=== PATIENT | female | born 1935 | race Hispanic/Latino ===

== ENCOUNTER 2020-09-20 13:59 | Observation (INO) | payer MEDICARE ==
--- NOTE | 2020-09-20 14:44 | RAD REPORT ---
EXAM DESCRIPTION: CT - Ct Stroke Brain Wo Cont - 09/20/2020 2:30 pm CLINICAL HISTORY: NUMBNESS, CVA, stroke protocol study COMPARISON: Head Brain Wo Cont dated 04/30/2017 TECHNIQUE: Axial 5 millimeter thick images of the head were obtained without IV contrast. All CT scans are performed using dose optimization technique as appropriate and may include automated exposure control or mA/KV adjustment according to patient size. FINDINGS: No intracranial hemorrhage, mass, or cerebral edema. No acute infarction identifiable. No extra-axial fluid collections. Valladares matter-white matter differentiation is preserved.Atrophy and chr onic ischemic changes are present mild in degree similar to the 2017 study. Ventricles are in proport ion to volume loss. Visualized portions of the mastoid air cells, paranasal sinuses, and orbits are unremarkable. Findings telephoned to Dr. Howard 14:40 p.m. IMPRESSION: No CT evidence of acute intracranial process. Atrophy and chronic ischemic changes match 2017. Chronic ischemic changes can mask nonhemorrhagic acute infarction. MR brain followup can be obtained if there is ongoing concern for acute ischemia.
[2020-09-20] MEDS ORDERED: ALTEPLASE 0 ML IV ONE (15:05)
[2020-09-20] MEDS ORDERED: NA CHLORIDE 0.9% 0 ML ONE (15:05)
[2020-09-20 15:16] LABS: Protime INR 1.04
[2020-09-20] MEDS ORDERED: LORAZEPAM 1 MG TABLET ONE (15:18)
[2020-09-20 15:27] LABS: Absolute Lymphocytes (CBC) 1.3 K/uL (0.7-4.9); Basophils % 0.4 % (0-1.3); Hematocrit 37.4 % (36.0-45.0); Lymphocytes % 23.6 % (15.3-44.8); MPV 7.4 fL (7.6-11.3); RBC Red Blood Cell Count 4.38 M/uL (3.86-4.86)
[2020-09-20 15:31] LABS: ALT/SGPT 32 U/L (12-78); AST/SGOT 27 U/L (15-37); Albumin 4.1 g/dL (3.4-5.0); Alkaline Phosphatase 77 U/L (45-117); BUN Blood Urea Nitrogen 22 mg/dL (7-18); Bicarbonate 25 mmol/L (21-32); Bilirubin Direct 0.2 mg/dL (0-0.2); Bilirubin Total 0.6 mg/dL (0.2-1.0); Glucose Level 88 mg/dL (74-106); Magnesium 1.9 mg/dL (1.8-2.4); NT PRO-BNP 113 pg/mL (<450); Potassium 4.3 mmol/L (3.5-5.1); Protein, Total 8.1 g/dL (6.4-8.2); Sodium Level 122 mmol/L (136-145); Troponin (Emerg Dept Use Only) < 0.02 ng/mL (0.0-0.045)
--- NOTE | 2020-09-20 16:23 | RAD REPORT ---
EXAM DESCRIPTION: MRI - MRA Head Wo Cont - 09/20/2020 4:08 pm CLINICAL HISTORY: CVA, stroke-like symptoms, weakness COMPARISON: CT head same date, MRI brain same date TECHNIQUE: Axial and coronal 3D [id number] image acquisition was performed. 3D rotational images were generated with source and reconstruction images reviewed. Horizontal and vertical axis rotation al views generated using MIP protocol. FINDINGS: No aneurysm or vascular malformation. No dissection changes are seen. Exam does have motio n degradation limitation. No vasculitis or named branch occlusion identified. Moderate severity ather osclerotic changes are present in the peripheral M2/M3 branches of each middle cerebral artery and at the P1-P2 junction of each posterior cerebral artery. The atherosclerotic changes exceed the severit y of chronic ischemic change in the white matter. No basilar artery or internal carotid artery signif icant disease. No significant anterior cerebral artery disease. The anterior cerebral arteries are mo st degraded by motion. IMPRESSION: Moderate severity atherosclerotic changes are present in the peripheral middle cerebral artery distributions as well as the proximal posterior cerebral arteries. No large named branch occlusion. No vasculitis, aneurysm or vascular malformation.
--- NOTE | 2020-09-20 16:25 | RAD REPORT ---
EXAM DESCRIPTION: MRI - MRA Neck W/Wo Cont - 09/20/2020 4:05 pm CLINICAL HISTORY: CVA, weakness, dizziness COMPARISON: MRI brain same date, MRA head same date TECHNIQUE: MR angiography of the cervical vasculature performed. Coronal imaging plane acquisition u tilized. A 12 MultiHance contrast volume was utilized. Coronal reformatted images were generated and reviewed. Vertical axis 3D rotational projections obtained using maximum intensity projection protoco l. FINDINGS: Aortic arch is 3 vessel configuration. The subclavian artery origin falls outside of the f ield of view. The innominate and left common carotid origins show no stenosis. No vertebral artery or igins stenosis. Codominant vertebral arteries are unremarkable. There is mild tortuosity of the proxi mal bilateral common carotid arteries. No significant right carotid bulb or right ICA disease. Focal band like stenosis is present at the origin of the right carotid bulb causing 50-60% stenosis. 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
[2020-09-20] MEDS ORDERED: ASPIRIN 81 MG CHEWABLE TABLET ONE (16:30)
--- NOTE | 2020-09-20 16:47 | RAD REPORT ---
EXAM DESCRIPTION: MRI - Brain W/Wo Cont - 09/20/2020 4:27 pm CLINICAL HISTORY: STROKE COMPARISON: MRA Head Wo Cont dated 09/20/2020 TECHNIQUE: Sagittal and axial T1-weighted images were obtained. Axial PD/heavily T2-weighted and T2- FLAIR images were obtained along with axial DWI/ADC mapping sequences. Coronal heavily T2 weighted s equence obtained. Axial and coronal post-contrast T1-weighted images were also obtained. A 12 ml Mul tihance contrast following utilized. FINDINGS: No intracranial hemorrhage, mass or acute infarction. There is no edema or shift of midli ne structures. No extra-axial fluid collections. Valladares-matter/white matter junction is preserved. Sig nal voids are seen as a normal finding in the major intracranial vessels. Patient has very minimal at rophy change. Ventricles are normal. Cerebral white matter and basal ganglia chronic ischemic changes are mild. No significant brainstem chronic ischemic change. Post-contrast images show normal enhancement. No dural thickening. Mastoid air cells and paranasal sinuses are clear. IMPRESSION: No acute infarction. Atrophy and chronic ischemic changes are mild.
--- NOTE | 2020-09-20 16:51 | EDPHYS ---
Physician Documentation [facility] Name: Natali Perez Age: 84 yrs Sex: Female : 1935 Arrival Date: 09/20/2020 Time: 14:02 Bed 4 Private MD: Armaan Pereyra ED Physician Cornell Howard HPI: 09/20 14:45 This 84 yrs old Female presents to ER via Wheelchair with complaints of High cp Blood Pressure, Numbness Of Face. 14:45 The patient's problem is reported as a facial droop, on left. Onset: The cp symptoms/episode began/occurred today. 14:45 Duration: This was a single incident. Associated signs and symptoms: Pertinent cp positives: tingling left side of face. Patient's baseline: Neuro: alert and fully oriented, Motor: no deficits, Ambulation: walks without assistance, Speech: normal. 14:45 Patient reports she was told to go to ED for evaluation of low sodium level after cp having blood drawn 2 days ago. Historical: - Allergies: 14:19 Iodine; iw 14:19 Sulfa (Sulfonamide Antibiotics); iw - PMHx: 14:19 Hyperlipidemia; Hypertension; Hypothyroidism; iw - Immunization history:: Adult Immunizations unknown. - Social history:: Smoking status: unknown. ROS: 14:50 Constitutional: Negative for body aches, chills, fever, poor PO intake. cp 14:50 Eyes: Negative for injury, pain, redness, and discharge. cp 14:50 ENT: Negative for ear pain, sore throat, difficulty swallowing, difficulty handling secretions. 14:50 Cardiovascular: Negative for chest pain, edema, palpitations. 14:50 Respiratory: Negative for cough, shortness of breath, wheezing. 14:50 Abdomen/GI: Negative for abdominal pain, nausea, vomiting, and diarrhea, constipation. 14:50 : Negative for urinary symptoms. 14:50 Neuro: Positive for tingling, weakness, Negative for altered mental status, dizziness, headache. 14:50 All other systems are negative. Exam: 14:55 Constitutional: The patient appears in no acute distress, alert, awake, cp non-diaphoretic, non-toxic, well developed, well nourished. 14:55 Head/Face: Normocephalic, atraumatic. cp 14:55 Eyes: Periorbital structures: appear normal, Pupils: equal, round, and reactive to light and accomodation, Extraocular movements: intact throughout, Conjunctiva: normal, no exudate, no injection, Sclera: no appreciated abnormality, Lids and lashes: appear normal, bilaterally. 14:55 ENT: External ear(s): are unremarkable, Nose: is normal, Mouth: Lips: moist, Oral mucosa: moist, Posterior pharynx: Airway: no evidence of obstruction, patent. 14:55 Neck: ROM/movement: is normal, is supple, without pain, no range of motions limitations, no nuchal rigidity. 14:55 Chest/axilla: Inspection: normal, Palpation: is normal, no crepitus, no tenderness. 14:55 Cardiovascular: Rate: normal, Rhythm: regular, Edema: is not appreciated, JVD: is not appreciated. 14:55 Respiratory: the patient does not display signs of respiratory distress, Respirations: normal, no use of accessory muscles, no retractions, labored breathing, is not present, Breath sounds: are clear throughout, no decreased breath sounds, no stridor, no wheezing. 14:55 Abdomen/GI: Inspection: abdomen appears normal, Palpation: abdomen is soft and non-tender, in all quadrants. 14:55 Back: pain, is absent, ROM is normal. 14:55 Skin: no rash present. 14:55 Neuro: Orientation: to person, place \\T\\ time. Mentation: is normal, Cerebellar function: Romberg testing is negative, normal finger to nose testing, heel to carroll testing is normal, Motor: moves all fours, strength is normal, Sensation: light touch is decreased in the left side of face. 15:05 Radiologist reports: no acute findings cp Vital Signs: 14:12 BP 157 / 91; Pulse 79; Resp 16; Temp 97.0; Pulse Ox 100% on R/A; iw 14:46 Weight 63.91 kg (M); iw 15:00 BP 183 / 76; Pulse 82; Resp 15; Pulse Ox 100% ; jl7 16:35 BP 156 / 75; Pulse 72; Resp 15; Pulse Ox 100% ; jl7 17:00 BP 164 / 80; Pulse 67; Resp 15; Pulse Ox 100% ; jl7 18:32 BP 172 / 76; Pulse 64; Resp 17; Pulse Ox 100% ; jl7 19:15 BP 200 / 85; Pulse 71; Resp 20; Pulse Ox 99% ; rr5 19:32 BP 198 / 89; Pulse 107; Resp 25; Pulse Ox 100% on R/A; rv 20:29 BP 138 / 66; Pulse 89; Resp 20; Pulse Ox 99% ; rr5 21:27 BP 141 / 66; Pulse 86; Resp 17; Pulse Ox 98% ; rr5 NIH Stroke Scale Scores: 14:35 NIHSS Score: 1 jl7 14:43 NIHSS Score: 2 cp MDM: 14:43 Patient medically screened. cp 14:57 ED course: VS noted. Discussed results of exam with consult with ED physician, DR katja Howard. Patient refuses tpa at this time. 15:00 Differential diagnosis: CVA, TIA, metabolic disorder, drug effects, Steel's Palsy. cp 16:35 Physician consultation: Rafy Harley MD was contacted at 16:35, regarding consult, cp patient's condition, would like admission per . Mike Davis discussed negative head CT and head/neck MRI. Continue medical management with replacement of sodium level. 16:46 Data reviewed: vital signs, nurses notes, lab test result(s), EKG, radiologic studies, cp CT scan, MRI, plain films. Physician consultation: Mike Davis was contacted at 16:47, regarding admission, to the telemetry unit. patient's condition, and will see patient in ED, shortly. 09/20 14:43 Order name: Basic Metabolic Panel; Complete Time: 15:41 cp 09/20 15:42 Interpretation: Normal except: NA 122; CL 89; BUN 22; GFR 82. cp 09/20 14:43 Order name: CBC with Diff; Complete Time: 15:41 cp 09/20 15:42 Interpretation: Normal except: MPV 7.4. cp 09/20 14:43 Order name: LFT's; Complete Time: 15:41 cp 09/20 15:42 Interpretation: Normal except: GLOB 4.0; A/G 1.0. cp 09/20 14:43 Order name: Magnesium; Complete Time: 15:41 cp 09/20 14:43 Order name: NT PRO-BNP; Complete Time: 15:41 cp 09/20 14:43 Order name: PT-INR; Complete Time: 15:41 cp 09/20 14:23 Order name: CT Stroke Brain w/o Contrast; Complete Time: 15:41 iw 09/20 15:42 Interpretation: Report reviewed. 09/20 14:43 Order name: Troponin (emerg Dept Use Only); Complete Time: 15:41 cp 09/20 14:56 Order name: Glucose, Ancillary Testing; Complete Time: 15:41 EDMS 09/20 17:48 Order name: COVID-19 : Document "Date of Symptom Onset" if Symptomatic. em1 09/20 17:48 Order name: CORONAVIRUS EDOH 09/20 19:16 Order name: SARS-COV-2 RT PCR EDOH 09/20 20:52 Order name: Basic Metabolic Panel EDOH 09/20 21:06 Order name: Osmolality, Serum EDOH 09/20 14:43 Order name: XRAY Chest (1 view); Complete Time: 17:15 cp 09/20 14:43 Order name: EKG; Complete Time: 14:43 cp 09/20 14:43 Order name: Cardiac monitoring; Complete Time: 14:59 cp 09/20 14:43 Order name: EKG - Nurse/Tech; Complete Time: 14:59 cp 09/20 14:43 Order name: IV Saline Lock; Complete Time: 14:59 cp 09/20 14:43 Order name: Labs collected and sent; Complete Time: 14:59 cp 09/20 14:43 Order name: O2 Per Protocol; Complete Time: 14:59 cp 09/20 14:43 Order name: O2 Sat Monitoring; Complete Time: 14:59 cp 09/20 15:19 Order name: MRA Head Wo Cont; Complete Time: 16:30 EDMS 09/20 15:32 Order name: Brain W/Wo Cont; Complete Time: 17:15 EDMS 09/20 17:16 Interpretation: Report reviewed. 09/20 15:32 Order name: MRA Neck W/Wo Cont; Complete Time: 16:30 EDMS Administered Medications: 16:12 Drug: foLIC Acid 1 mg Route: IVPB; Site: right forearm; jl7 16:13 Follow up: Response: No adverse reaction; IV Status: Completed infusion jl7 16:20 Drug: Aspirin Chewable Tablet 162 mg Route: PO; jl7 16:39 Follow up: Response: No adverse reaction jl7 16:34 Not Given (Physician Discretion): Aspirin Chewable Tablet 324 mg PO once; 81 mg tablets jl7 x 4 16:38 Drug: NS 0.9% 500 ml Route: IV; Rate: 500 ml/hr; Site: right forearm; 7 17:38 Follow up: Response: No adverse reaction; IV Status: Completed infusion; IV Intake: jl7 500ml Disposition: 09/21 06:49 Co-signature as Attending Physician, Cornell Howard MD I agree with the assessment and kdr plan of care. Disposition: 09/20/20 16:50 Hospitalization ordered by Mike Davis for Observation. Preliminary diagnosis are Transient cerebral ischemic attack, unspecified, Hypo-osmolality and hyponatremia. - Bed requested for Telemetry/MedSurg (observation). - Status is Observation. rr5 - Condition is Stable. - Problem is new. - Symptoms have improved. NIH Stroke Scale - NIH Stroke Score Date: 09/20/2020 Time: 14:35 Total Score = 1 1a. Level of Consciousness (LOC) - 0(Alert) 1b. Level of Consciousness (LOC) (Year \\T\\ Age) - 0(Both) 1c. LOC Commands (Open \\T\\ Closes Eyes/Contract Engineer) - 0(Both) 2. Best Gaze (Lateral Gaze Paresis) - 0(Normal) 3. Visual Field Loss - 0(No visual loss) 4. Facial Palsy - 0(Normal) 5a. Left Arm: Motor (10-second hold) - 0(No drift) 5b. Right Arm: Motor (10-second hold) - 0(No drift) 6a. Left Leg: Motor (5-second hold - always test supine) - 0(No drift) 6b. Right Leg: Motor (5-second hold - always test supine) - 0(No drift) 7. Limb Ataxia (finger/nose \\T\\ heel/carroll - test with eyes open) - 0(Absent) 8. Sensory Loss (pinprick arms/legs/face) - 1(Mild to moderate loss) 9. Best Language: Aphasia (description/naming/reading) - 0(No aphasia) 10. Dysarthria (speech clarity - read or repeat words) - 0(Normal) 11. Extinction and Inattention (visual/tactile/auditory/spatial/personal) - 0(No abnormality) Initials: jl7 NIH Stroke Scale - NIH Stroke Score Date: 09/20/2020 Time: 14:43 Total Score = 2 1a. Level of Consciousness (LOC) - 0(Alert) 1b. Level of Consciousness (LOC) (Year \\T\\ Age) - 0(Both) 1c. LOC Commands (Open \\T\\ Closes Eyes/Contract Engineer) - 0(Both) 2. Best Gaze (Lateral Gaze Paresis) - 0(Normal) 3. Visual Field Loss - 0(No visual loss) 4. Facial Palsy - 1(Minor Paralysis) 5a. Left Arm: Motor (10-second hold) - 0(No drift) 5b. Right Arm: Motor (10-second hold) - 0(No drift) 6a. Left Leg: Motor (5-second hold - always test supine) - 0(No drift) 6b. Right Leg: Motor (5-second hold - always test supine) - 0(No drift) 7. Limb Ataxia (finger/nose \\T\\ heel/carroll - test with eyes open) - 0(Absent) 8. Sensory Loss (pinprick arms/legs/face) - 1(Mild to moderate loss) 9. Best Language: Aphasia (description/naming/reading) - 0(No aphasia) 10. Dysarthria (speech clarity - read or repeat words) - 0(Normal) 11. Extinction and Inattention (visual/tactile/auditory/spatial/personal) - 0(No abnormality) Initials: cp Signatures: Dispatcher [employer] [facility] Elidia Pineda RN RN dw Cornell Howard MD MD kdr Williams, Irene, RN RN iw Mc Stone PA PA cp Rosa Sellers, RN RN jl7 Deyvi Reno, RN RN rr5 Corrections: (The following items were deleted from the chart) 09/20 15:18 15:00 MR STROKE PROTOCOL+MRI.RAD.BRZ ordered. [facility] 21:10 16:50 Hospitalization Ordered by Mike Davis for Observation. Preliminary dw diagnosis is Transient cerebral ischemic attack, unspecified; Hypo-osmolality and hyponatremia. Bed requested for Telemetry/MedSurg (observation). Status is Observation. Condition is Stable. Problem is new. Symptoms have improved. cp 21:41 21:10 09/20/2020 16:50 Hospitalization Ordered by Mike Davis for rr5 Observation. Preliminary diagnosis is Transient cerebral ischemic attack, unspecified; Hypo-osmolality and hyponatremia. Bed requested for Telemetry/MedSurg (observation). Status is Observation. Condition is Stable. Problem is new. Symptoms have improved. dw
--- NOTE | 2020-09-20 16:51 | ER ---
Nurse's Notes [facility] Name: Natali Perez Age: 84 yrs Sex: Female : 1935 Arrival Date: 09/20/2020 Time: 14:02 Bed 4 Private MD: Armaan Pereyra Diagnosis: Transient cerebral ischemic attack, unspecified;Hypo-osmolality and hyponatremia Presentation: 09/20 14:12 Chief complaint: Patient states: her BP was high at 1 this after noon, has been iw fluctuating high and low over past 2 weeks, was taking half dose of her BP medicine, trying to regulate her BP meds. Sometimes she gets shaky and gets chills was told her sodium was 124 from labs two days ago, sees PA at [facility] office , has been having left sided facial numbness and it feels funny , had a hard time swallowing, started about an hour ago. Coronavirus screen: At this time, the client does not indicate any symptoms associated with coronavirus-19. Ebola Screen: Patient negative for fever greater than or equal to 101.5 degrees Fahrenheit, and additional compatible Ebola Virus Disease symptoms Patient denies exposure to infectious person. Patient denies travel to an Ebola-affected area in the 21 days before illness onset. No symptoms or risks identified at this time. Initial Sepsis Screen: Does the patient meet any 2 criteria? No. Patient's initial sepsis screen is negative. Does the patient have a suspected source of infection? No. Patient's initial sepsis screen is negative. Risk Assessment: Do you want to hurt yourself or someone else? Patient reports no desire to harm self or others. Onset of symptoms was September 20, 2020. 14:12 Method Of Arrival: Wheelchair iw 14:12 Acuity: ESPERANZA 2 iw Historical: - Allergies: 14:19 Iodine; iw 14:19 Sulfa (Sulfonamide Antibiotics); iw - PMHx: 14:19 Hyperlipidemia; Hypertension; Hypothyroidism; iw - Immunization history:: Adult Immunizations unknown. - Social history:: Smoking status: unknown. Screenin:55 Patient has been NPO before screening. The patient is alert, able to follow commands. jl7 The patient does not exhibit slurred or garbled speech The patient is not exhibiting difficulty speaking. The patient does not exhibit difficulty understanding words. The patient is able to swallow own secretions with no drooling or need for suction. Patient tolerated one teaspoon of water. No drooling, immediate coughing, gurgling, or clearing of the throat was noted. The patient tolerated 90mL of water. No drooling, immediate coughing, gurgling, or clearing of the throat was noted. The patient passed the bedside swallow screening. Oral medications may be given as ordered. Contact Physician for further diet orders. Provider notified of bedside swallow screening results: Mc MARTINEZ. 15:00 Fall Risk IV access (20 points). Total Lovett Fall Scale indicates No Risk (0-24 pts). jl7 15:07 Abuse screen: Denies threats or abuse. Denies injuries from another. Nutritional jl7 screening: No deficits noted. Tuberculosis screening: No symptoms or risk factors identified. Assessment: 14:35 General: Appears in no apparent distress. uncomfortable, Behavior is calm, cooperative, jl7 appropriate for age. Pain: Denies pain. Neuro: Level of Consciousness is awake, alert, obeys commands, Oriented to person, place, time, situation. Cardiovascular: Denies chest pain, Patient's skin is warm and dry. Respiratory: Airway is patent Respiratory effort is even, unlabored, Respiratory pattern is regular, symmetrical, Denies shortness of breath. GI: Abdomen is non-distended, Patient currently denies diarrhea, nausea, vomiting. Derm: Skin is pink, warm \T\ dry. 14:55 Reassessment: Dr. Howard and JUAN Hoang at bedside, pt verbally refuses TPA at jl7 this time. 16:10 Reassessment: Pt returned from MRI. jl7 19:30 General: Appears in no apparent distress. comfortable, Behavior is calm, cooperative, rr5 appropriate for age. Pain: Denies pain. Neuro: Level of Consciousness is awake, alert, obeys commands, Oriented to person, place, time, situation. Cardiovascular: Capillary refill < 3 seconds Patient's skin is warm and dry. Respiratory: Airway is patent Respiratory effort is even, unlabored, Respiratory pattern is regular, symmetrical. GI: Abdomen is non-distended. : No signs and/or symptoms were reported regarding the genitourinary system. EENT: No signs and/or symptoms were reported regarding the EENT system. Derm: Skin is pink, warm \T\ dry. Musculoskeletal: Capillary refill < 3 seconds. 19:40 Reassessment: Patient appears in no apparent distress at this time. Patient is alert, rr5 oriented x 3, equal unlabored respirations, skin warm/dry/pink. hydralazine given ordered in [facility]. 20:30 Reassessment: Patient appears in no apparent distress at this time. Patient is alert, rr5 oriented x 3, equal unlabored respirations, skin warm/dry/pink. Patient states symptoms have improved. 21:27 Reassessment: Patient appears in no apparent distress at this time. Patient is alert, rr5 oriented x 3, equal unlabored respirations, skin warm/dry/pink. Vital Signs: 14:12 BP 157 / 91; Pulse 79; Resp 16; Temp 97.0; Pulse Ox 100% on R/A; iw 14:46 Weight 63.91 kg (M); iw 15:00 BP 183 / 76; Pulse 82; Resp 15; Pulse Ox 100% ; jl7 16:35 BP 156 / 75; Pulse 72; Resp 15; Pulse Ox 100% ; jl7 17:00 BP 164 / 80; Pulse 67; Resp 15; Pulse Ox 100% ; jl7 18:32 BP 172 / 76; Pulse 64; Resp 17; Pulse Ox 100% ; jl7 19:15 BP 200 / 85; Pulse 71; Resp 20; Pulse Ox 99% ; rr5 19:32 BP 198 / 89; Pulse 107; Resp 25; Pulse Ox 100% on R/A; rv 20:29 BP 138 / 66; Pulse 89; Resp 20; Pulse Ox 99% ; rr5 21:27 BP 141 / 66; Pulse 86; Resp 17; Pulse Ox 98% ; rr5 NIH Stroke Scale Scores: 14:35 NIHSS Score: 1 jl7 14:43 NIHSS Score: 2 cp ED Course: 14:02 Patient arrived in ED. ag5 14:02 Armaan Pereyra MD is Private Physician. ag5 14:18 Triage completed. iw 14:22 Arm band placed on. iw 14:27 Rosa Sellers RN is Primary Nurse. jl7 14:29 CT Stroke Brain w/o Contrast In Process Unspecified. EDMS 14:35 Patient has correct armband on for positive identification. Placed in gown. Bed in low jl7 position. Call light in reach. Side rails up X2. greaser helper on. Pulse ox on. NIBP on. Warm blanket given. 14:41 Mc Stone PA is PHCP. cp 14:41 Cornell Howard MD is Attending Physician. cp 14:45 Initial lab(s) drawn, by me, sent to lab. EKG done, by ED staff, reviewed by Mc MARTINEZ. Inserted saline lock: 20 gauge in right forearm, using aseptic technique. Blood collected. 15:50 MRA Head Wo Cont In Process Unspecified. EDMS 15:51 Brain W/Wo Cont In Process Unspecified. EDMS 15:51 MRA Neck W/Wo Cont In Process Unspecified. EDMS 16:17 XRAY Chest (1 view) In Process Unspecified. EDMS 16:49 Mike Davis is Hospitalizing Provider. cp 21:26 No provider procedures requiring assistance completed. Patient admitted, IV remains in rr5 place. intact, No redness/swelling at site. Administered Medications: 16:12 Drug: foLIC Acid 1 mg Route: IVPB; Site: right forearm; jl7 16:13 Follow up: Response: No adverse reaction; IV Status: Completed infusion jl7 16:20 Drug: Aspirin Chewable Tablet 162 mg Route: PO; jl7 16:39 Follow up: Response: No adverse reaction jl7 16:34 Not Given (Physician Discretion): Aspirin Chewable Tablet 324 mg PO once; 81 mg tablets jl7 x 4 16:38 Drug: NS 0.9% 500 ml Route: IV; Rate: 500 ml/hr; Site: right forearm; jl7 17:38 Follow up: Response: No adverse reaction; IV Status: Completed infusion; IV Intake: jl7 500ml Intake: 17:38 IV: 500ml; Total: 500ml. jl7 Outcome: 16:50 Decision to Hospitalize by Provider. cp 21:26 Admitted to Med/surg accompanied by tech, via stretcher, room 219, with chart, Report rr5 called to bari 21:26 Condition: stable 21:26 Instructed on the need for admit. 21:41 Patient left the ED. rr5 NIH Stroke Scale - NIH Stroke Score Date: 09/20/2020 Time: 14:35 Total Score = 1 1a. Level of Consciousness (LOC) - 0(Alert) 1b. Level of Consciousness (LOC) (Year \T\ Age) - 0(Both) 1c. LOC Commands (Open \T\ Closes Eyes/Corporate Giving Manager) - 0(Both) 2. Best Gaze (Lateral Gaze Paresis) - 0(Normal) 3. Visual Field Loss - 0(No visual loss) 4. Facial Palsy - 0(Normal) 5a. Left Arm: Motor (10-second hold) - 0(No drift) 5b. Right Arm: Motor (10-second hold) - 0(No drift) 6a. Left Leg: Motor (5-second hold - always test supine) - 0(No drift) 6b. Right Leg: Motor (5-second hold - always test supine) - 0(No drift) 7. Limb Ataxia (finger/nose \T\ heel/carroll - test with eyes open) - 0(Absent) 8. Sensory Loss (pinprick arms/legs/face) - 1(Mild to moderate loss) 9. Best Language: Aphasia (description/naming/reading) - 0(No aphasia) 10. Dysarthria (speech clarity - read or repeat words) - 0(Normal) 11. Extinction and Inattention (visual/tactile/auditory/spatial/personal) - 0(No abnormality) Initials: jl7 NIH Stroke Scale - NIH Stroke Score Date: 09/20/2020 Time: 14:43 Total Score = 2 1a. Level of Consciousness (LOC) - 0(Alert) 1b. Level of Consciousness (LOC) (Year \T\ Age) - 0(Both) 1c. LOC Commands (Open \T\ Closes Eyes/Corporate Giving Manager) - 0(Both) 2. Best Gaze (Lateral Gaze Paresis) - 0(Normal) 3. Visual Field Loss - 0(No visual loss) 4. Facial Palsy - 1(Minor Paralysis) 5a. Left Arm: Motor (10-second hold) - 0(No drift) 5b. Right Arm: Motor (10-second hold) - 0(No drift) 6a. Left Leg: Motor (5-second hold - always test supine) - 0(No drift) 6b. Right Leg: Motor (5-second hold - always test supine) - 0(No drift) 7. Limb Ataxia (finger/nose \T\ heel/carroll - test with eyes open) - 0(Absent) 8. Sensory Loss (pinprick arms/legs/face) - 1(Mild to moderate loss) 9. Best Language: Aphasia (description/naming/reading) - 0(No aphasia) 10. Dysarthria (speech clarity - read or repeat words) - 0(Normal) 11. Extinction and Inattention (visual/tactile/auditory/spatial/personal) - 0(No abnormality) Initials: cp Signatures: Dispatcher [employer] Lindsay Gallego RN RN iw Mc Stone PA PA cp Rosa Sellers RN RN jl7 Jose Major RN RN rv Roque, Raymond RN RN rr5 Mark Anthony Newman ag5
[2020-09-20] MEDS ORDERED: NA CHLORIDE 0.9% 500 ML ONE (16:52)
--- NOTE | 2020-09-20 17:02 | RAD REPORT ---
EXAM DESCRIPTION: RAD - Chest Single View - 09/20/2020 4:17 pm CLINICAL HISTORY: weakness, hypertension COMPARISON: Portable September 2017 TECHNIQUE: AP portable chest image was obtained 09/20/2020 4:17 pm . FINDINGS: Lungs are underinflated accentuating the baseline interstitial pattern. This could mask an early interstitial edema or infiltrate. No focal mass or consolidation. Significant failure and volu me overload are not suspected. Heart and vasculature are normal. No measurable pleural effusion and no pneumothorax. No acute bony abnormality seen. No acute aortic findings suspected. IMPRESSION: Shallow inspiration exam accentuates baseline interstitial pattern. No focal mass or consolidation.
--- NOTE | 2020-09-20 18:04 | P.HP ---
Certification for Inpatient Patient admitted to: Observation With expected LOS: <2 Midnights Practitioner: I am a practitioner with admitting privileges, knowledge of patient current condition, hospital course, and medical plan of care. Services: Services provided to patient in accordance with Admission requirements found in Title 42 Section 412.3 of the Code of Federal Regulations Patient History Date of Service: 09/20/20 Reason for admission: Tingling sensation left face and body History of Present Illness: 84-year-old woman with a history of hypertension was brought to the emergency department due to sudden onset of tingling sensation on the left half of face and the rest of the body. Patient was noted to have severe systolic hypertension in the ED. Systolic blood pressure was up to 187. Her sodium level is 122. She saw Dr. Pereyra 2 days ago and was noted to have sodium level of 124. Her Irbesartan dose was also reduce by half due to fluctuating blood pressure. Stroke alert was called in the ED. CT head, MRI of the brain, MRA of head and neck were all performed in the ED and were unremarkable. No acute CVA. Patient is hospitalized for further management of hyponatremia and hypertension. Allergies IODINE; IODINE CONTAINING Allergy (Uncoded 12/29/13 20:21) Unknown Sulfa (Sulfonam Allergy (Uncoded 05/07/16 18:22) Unknown Sulfa (Sulfonami Allergy (Uncoded 09/30/17 19:05) Unknown Sulfa (Sulfonamid Allergy (Uncoded 04/30/17 15:43) Unknown SULFA (SULFONAMIDES) Allergy (Uncoded 12/29/13 20:21) Unknown Home Medications: Levothyroxine [Synthroid*] 112 mcg PO [id number] 12/29/13 Losartan Potassium [Cozaar*] 50 mg PO BEDTIME 12/29/13 Azithromycin Tab [Zithromax*] 250 mg PO DAILY #4 tab 12/30/13 Hydrocodone/Chlorphen Polis [Tussionex Oral Susp*] 5 ml PO Q12HP PRN #30 osyr 12/30/13 - Past Medical/Surgical History Diabetic: No -: HTN -: hypothyroidism -: arthritis -: cateracts bilater -: knee sx -: hysterectomy, -: clau -: shoulder sx - Family History Family History: Reviewed- Non-Contributory - Social History Smoking Status: Never smoker Alcohol use: No CD- Drugs: No Caffeine use: Yes Review of Systems Other: Except as documented, all other systems reviewed and negative. Physical Examination - Physical Exam General: Alert, In no apparent distress, Oriented x3 HEENT: PERRLA, Mucous membr. moist/pink, Other (Moist oral mucosae), EOMI, Abnormal EOM Neck: Supple, JVD not distended, No Thyromegaly Respiratory: Clear to auscultation bilaterally, Normal air movement Cardiovascular: No edema, Regular rate/rhythm, Normal S1 S2, No murmurs Gastrointestinal: Normal bowel sounds, Soft and benign, Non-distended, No tenderness Musculoskeletal: No swelling, No tenderness Integumentary: No rashes, No erythema Neurological: Normal speech, Normal strength at 5/5 x4 extr, Cranial nerves 3-12 intact - Studies Laboratory Data (last 24 hrs) 09/20/20 14:46: PT 12.0, INR 1.04 09/20/20 14:46: WBC 5.50, Hgb 12.7, Hct 37.4, Plt Count 266 09/20/20 14:46: Sodium 122 L, Potassium 4.3, BUN 22 H, Creatinine 0.68, Glucose 88, Magnesium 1.9, Total Bilirubin 0.6, AST 27, ALT 32, Alkaline Phosphatase 77 Assessment and Plan - Problems (Diagnosis) (1) Accelerated hypertension Current Visit: Yes Status: Acute (2) Hyponatremia Current Visit: No Status: Acute - Plan Place under observation. Start aspirin and folic acid Check lipid profile Treat hyponatremia with normal saline Monitor BMP q8hrs. Continue home antihypertensives. Hydralazine IV p.r.n. for BP spikes. Add amlodipine at bedtime. Check TSH Check serum osmolality - Advance Directives Does patient have a Living Will: No Does patient have a Durable POA for Healthcare: No
[2020-09-20] MEDS ORDERED: HYDRALAZINE HCL 20 MG/ML VIAL IV PRN (19:37)
[2020-09-20] MEDS ORDERED: ACETAMINOPHEN 500 MG TAB PO PRN (19:37)
[2020-09-20] MEDS ORDERED: ONDANSETRON 4 MG/2 ML VIAL IV PRN (19:37)
[2020-09-20] MEDS ORDERED: ASPIRIN EC 81 MG TAB PO ONE (19:37)
[2020-09-20] MEDS ORDERED: AMLODIPINE 5 MG TAB PO SCH (21:00)
[2020-09-20 22:58] VITALS: BMI 24.7
[2020-09-20] MEDS: NA CHLORIDE 0.9% 1,000 ML IV SCH (23:00)
[2020-09-21] MEDS ORDERED: HEPARIN 5000 UNIT/ML 1 ML VIAL SQ SCH ×2 (01:00→20:00)
[2020-09-21 03:12] LABS: Urine Appearance CLEAR; Urine Bilirubin NEGATIVE (NEG); Urine Blood NEGATIVE (NEG); Urine Color YELLOW; Urine Glucose NEGATIVE (NEG); Urine Protein NEGATIVE (NEG); Urine Urobilinogen 0.2 mg/dL (0.2-1.0); Urine pH 6.5 (5.0-7.0)
[2020-09-21 03:13] LABS: Urine Microscopic Reflex ORDER UMIC
[2020-09-21 03:26] LABS: Urine Bacteria <20 /HPF (<20); Urine RBC <5 /HPF (NONE SEEN); Urine Yeast PRESENT (NONE SEEN)
[2020-09-21 04:14] LABS: Absolute Lymphocytes (CBC) 1.5 K/uL (0.7-4.9); Basophils % 0.8 % (0-1.3); Hematocrit 35.5 % (36.0-45.0); Lymphocytes % 30.5 % (15.3-44.8); MPV 7.3 fL (7.6-11.3); RBC Red Blood Cell Count 4.17 M/uL (3.86-4.86)
[2020-09-21 04:38] LABS: Magnesium 2.1 mg/dL (1.8-2.4); Phosphorus 3.8 mg/dL (2.5-4.9); Potassium 4.3 mmol/L (3.5-5.1); Thyroid Stimulating Hormone 1.72 uIU/mL (0.360-3.740)
[2020-09-21] MEDS: PANTOPRAZOLE 40MG TABLET PO SCH ×2 (08:12→16:07)
[2020-09-21] MEDS: NA CHLORIDE 0.9% 1,000 ML IV SCH (08:13)
[2020-09-21] MEDS ORDERED: FOLIC ACID 1 MG TABLET PO SCH (09:00)
[2020-09-21 10:41] VITALS: O2SAT 100
[2020-09-21 12:16] LABS: Potassium 4.7 mmol/L (3.5-5.1)
[2020-09-21 12:54] VITALS: BP 112/61; TEMP 98.7
--- NOTE | 2020-09-21 13:09 | P.DS ---
Admission Date: 09/20/20 Discharge Date: 09/21/20 Disposition: ROUTINE DISCHARGE Discharge Condition: FAIR Reason for Admission: Tingling sensation left face and body - Problems (1) Accelerated hypertension Current Visit: Yes Status: Acute (2) Hyponatremia Current Visit: No Status: Acute Brief History of Present Illness: 84-year-old woman with a history of hypertension was brought to the emergency department due to sudden onset of tingling sensation on the left half of face and the rest of the body. Patient was noted to have severe systolic hypertension in the ED. Systolic blood pressure was up to 187. Her sodium level is 122. She saw Dr. Pereyra 2 days ago and was noted to have sodium level of 124. Her Irbesartan dose was also reduce by half due to fluctuating blood pressure. Stroke alert was called in the ED. CT head, MRI of the brain, MRA of head and neck were all performed in the ED and were unremarkable. No acute CVA. Patient is hospitalized for further management of hyponatremia and hypertension. Hospital Course: Patient placed under observation on the medical floor. Her MRI of the brain, MRA of the head and neck, CT head all came back negative for acute stroke. Hyponatremia was treated with IV normal saline. Her sodium level improved to 130. Patient has chronic hyponatremia. Her serum osmolality was low suggesting the possibility of SIADH. Patient also admitted to drinking a lot of water. Fluid restriction to 1200 mL per day recommended. Her blood pressure was initially high with systolic up to 200. She was put on amlodipine 5 mg at bedtime. Her systolic blood pressure the following morning was in the 120s, i ncreased to 150s in the afternoon. Patient advised to take the Irbesartan and the hydralazine only on as needed basis 1 her systolic blood pressure is more than 140 and 160 respectively. Plan of care communicated to her PCP Dr. Pereyra. Acute CVA has been ruled out. Her sodium level has improved. Patient is deemed clinically stable for discharge. Vital Signs/Physical Exam: Temp Pulse Resp BP Pulse Ox 98.7 F 72 18 112/61 100 09/21/20 12:00 09/21/20 12:00 09/21/20 12:00 09/21/20 12:00 09/21/20 12:00 General: Alert, In no apparent distress, Oriented x3 HEENT: Mucous membr. moist/pink Neck: Supple, JVD not distended, No Thyromegaly Respiratory: Clear to auscultation bilaterally, Normal air movement Cardiovascular: No edema, Normal pulses, Normal S1 S2 Gastrointestinal: Soft and benign, Non-distended, No tenderness Musculoskeletal: No swelling, No tenderness Integumentary: No rashes, No erythema Neurological: Normal speech, Normal strength at 5/5 x4 extr, Cranial nerves 3-12 intact Laboratory Data at Discharge: WBC 5.00 K/uL (4.3-10.9) 09/21/20 03:41 Hgb 12.1 g/dL (12.0-15.0) 09/21/20 03:41 Hct 35.5 % (36.0-45.0) L 09/21/20 03:41 Plt Count 258 K/uL (152-406) 09/21/20 03:41 PT 12.0 SECONDS (9.5-12.5) 09/20/20 14:46 INR 1.04 09/20/20 14:46 Sodium 129 mmol/L (136-145) L 09/21/20 11:50 Potassium 4.7 mmol/L (3.5-5.1) 09/21/20 11:50 BUN 16 mg/dL (7-18) 09/21/20 11:50 Creatinine 0.74 mg/dL (0.55-1.3) 09/21/20 11:50 Glucose 82 mg/dL (74-106) 09/21/20 11:50 Phosphorus Cancelled 09/21/20 05:00 Magnesium Cancelled 09/21/20 05:00 Total Bilirubin 0.6 mg/dL (0.2-1.0) 09/20/20 14:46 AST 27 U/L (15-37) 09/20/20 14:46 ALT 32 U/L (12-78) 09/20/20 14:46 Alkaline Phosphatase 77 U/L (45-117) 09/20/20 14:46 Triglycerides Cancelled 09/21/20 05:00 Cholesterol Cancelled 09/21/20 05:00 HDL Cholesterol Cancelled 09/21/20 05:00 Cholesterol/HDL Ratio Cancelled 09/21/20 05:00 Home Medications: Levothyroxine Sodium [Levothyroxine] 88 mcg PO DAILY 09/20/20 Amlodipine [Norvasc*] 5 mg PO BEDTIME #30 tab 09/21/20 Hydralazine [Apresoline*] 10 mg PO PRN PRN #30 tab 09/21/20 Irbesartan 75 mg PO DAILY PRN #30 tab 09/21/20 Pantoprazole [Protonix Tab*] 40 mg PO BIDAC #60 tab 09/21/20 New Medications: Hydralazine [Apresoline*] 10 mg PO PRN PRN #30 tab PRN Reason: High blood pressure Irbesartan 75 mg PO DAILY PRN #30 tab PRN Reason: High blood pressure Amlodipine [Norvasc*] 5 mg PO BEDTIME #30 tab Pantoprazole [Protonix Tab*] 40 mg PO BIDAC #60 tab Physician Discharge Instructions: Pleaser restrict your free water intake to 1200 ml per day. Diet: Regular Activity: Ad josiane Followup: Armaan Pereyra MD [Primary Care Provider] - 1 Week
[2020-09-21] MEDS ORDERED: IRBESARTAN 150 MG TAB PO ONE (17:00)
[2020-09-22] MEDS ORDERED: LEVOTHYROXINE SOD 0.088 MG TAB PO SCH (06:30)
--- NOTE | 2020-09-23 07:59 | EKG ---
Test Date: 2020-09-20 Test Time: 14:40:02 Principal Database Developer: JO MEASUREMENT RESULTS: Intervals: Rate: 79 WA: 178 QRSD: 138 QT: 420 QTc: 481 Mellen: P: 63 WA: 178 QRS: -14 T: 57 INTERPRETIVE STATEMENTS: Normal sinus rhythm Right atrial enlargement Right bundle branch block Abnormal ECG Compared to ECG 04/30/2017 11:29:43 Atrial abnormality now present Left-axis deviation no longer present Electronically Signed On 09-23-20 07:54:00 FISH ROE TECHNICIAN by Nacho Servin
== END 2020-09-21 16:21 | disposition home or self-care (01) ==
LOC: ER 13:59 → ERHOLD 17:40 → 2ND 21:26
PROVIDERS: ADMIT Internal Medicine; ATTEND Internal Medicine
DX: I10 Essential (primary) hypertension (principal); E87.1 Hypo-osmolality and hyponatremia; E03.9 Hypothyroidism, unspecified; M19.90 Unspecified osteoarthritis, unspecified site; E78.5 Hyperlipidemia, unspecified; Z20.822 Contact with and (suspected) exposure to COVID-19; Z88.2 Allergy status to sulfonamides; Z88.8 Allergy status to other drugs, medicaments and biological substances; Z90.49 Acquired absence of other specified parts of digestive tract; Z90.710 Acquired absence of both cervix and uterus
CPT/HCPCS: 96361; 93005; 87088; 85025 ×2; 87086; 80048 ×4; 36415; 83735 ×2; 84100; 85610; 80061; 82947; 80076; 84443; 84484; 83880; 83930 ×2; 70450; 71045; 70553; 70544; 70549; 97161; 94760 ×2; 96374; 99285; U0003; A9577; J0360; J7040; J7030 ×2; 81003; 81015; J1644; J2997